=== PATIENT | female | born 1940 | race Caucasian/White ===

== ENCOUNTER 2016-10-29 13:45 | Outpatient (RCR) | payer MEDICARE, OTHER | END 2016-12-27 | disposition home or self-care (01) | LOC: ONC 13:45 | PROVIDERS: ATTEND Radiology Radiation Oncology | DX: C34.30 Malignant neoplasm of lower lobe, unspecified bronchus or lung (principal) | CPT/HCPCS: 77290; 77295; 77300; 77334; 77336; 77417; 77470; 99214 ==